=== PATIENT | female | born 1950 | race Caucasian/White ===

== ENCOUNTER → 2017-02-24 | Outpatient (CLI) | payer MEDICARE, OTHER ==
--- NOTE | 2017-02-24 15:06 | PCVCIMAG ---
APPROVED REPORT Laterality: Bilateral Indications Stenosis Risk Factors Hypertension: Hyperlipidemia Diabetes Doppler Spectral Velocity Analysis PSV / EDVPSV / EDV ECA (R) 83 / 6 cm/sECA (L) 82 / 7 cm/s dICA (R) 78 / 21 cm/sdICA (L) 67 / 0 cm/s Brandon (R) 62 / 19 cm/smICA (L) 81 / 21 cm/s pICA (R) 56 / 13 cm/spICA (L) 54 / 15 cm/s Bulb (R) 44 / 12 cm/sBulb (L) 56 / 16 cm/s dCCA (R) 70 / 16 cm/sdCCA (L) 82 / 14 cm/s mCCA (R) 74 / 10 cm/smCCA (L) 77 / 13 cm/s Vert (R) 52 / 14 cm/sVert (L) 32 / 7 cm/s ICA/CCA 1.11ICA/CCA 0.99 Basic Measurements Blood Pressure: Pulses: Right Left RightLeft Brachial(Sitting) 134/44ikYp159/70mmHgTemporal Real Time B-Mode Imaging Vert. (R)AntegradeVert. (L)Antegrade Findings The right carotid bulb has no significant plaque. The right proximal internal carotid artery shows no significant stenosis. The right common carotid artery shows no significant stenosis. The right external carotid artery shows no significant stenosis. The left carotid bulb has no significant plaque. The left proximal internal carotid artery shows no significant stenosis. The left common carotid artery shows no significant stenosis. The left external carotid artery shows no significant stenosis. Conclusion 1. Normal bilateral carotid duplex 2. Antegrade vertebral flow
--- NOTE | 2017-02-24 16:13 | PCVCIMAG ---
APPROVED REPORT Exam: Stress Echocardiogram Indication: CAD s/p CABG,, Hypertension, Hyperlipidemia, diabetes Patient Location: Echo lab Stress Nurse: Anita Ornelas RN Status: routine Ht: 5 ft 1 in HR: 48 bpm BP: 130/62 mmHg Rhythm: NSR Medical History Medical History: Diabetes, CAD s/p CABG Cardiac Risk Factors: HTN, Hyperlipidemia, DM Previous Cardiac Procedures: CABG Pretest Chest Pain Characteristics: No chest pain Exercise History: Sedentary Procedure The patient underwent an Exercise Stress Test using the Jorge Protocol. Blood pressure, heart rate, and EKG were monitored. An Echocardiogram was performed by emergency medical technician in four stages in quad fashion. At peak stress, four selected images were obtained and placed side by side with resting images for comparison. Stress Test Details Stress Test: Exercise stress testing was performed using a Jorge protocol. HR Resting HR: 55 bpmMax Heart Rate (APMHR): 154 bpm Max HR Achieved: 117 bpmTarget HR (85% APMHR): 130 bpm % of APMHR: 75 Recovery HR: 76 bpm HR response to stress: Blunted HR response to stress- Pt took 10mg Bystolic this am BP Resting BP: 130/62 mmHg Max BP: 186/80 mmHg Recovery BP: 144/64 mmHg ECG Resting ECG: Sinus Rhythm Stress ECG: Sinus Bradycardia ST Change: Normal Arrhythmia: None Recovery ECG: Sinus Rhythm Recovery ST Change: Non-ischemic Recovery ST Deviation: 0.25 mm Recovery Arrhythmia: Rare pvcs Clinical Reason for Termination: Maximal effort Stress Symptoms: none Exercise duration: 6 min 44 sec Highest Stage Achieved: Stage 3: 3.4 mph at 14% grade. Exercise capacity: 9.2 METs Overall Exercise Capacity for Age: Poor Angina Score: None Stress ECG Conclusion The patient exercised according to the JORGE protocol for 6:44 min, achieving a work level of Max. METS: 9.2 . The resting heart rate of 55 bpm radha to a maximal heart rate of 120 bpm. This value represents 77 % of the maximal, age-predicted heart rate. The resting blood pressure of 130/62 mmHg, radha to a maximum blood pressure of 186/80 mmHg. The exercise test was stopped due to fatigue. Pre-Stress Echo The resting Echocardiogram showed normal left ventricular contractility with an estimated Ejection Fraction of about 55-60%. Normal wall motion in all segments on baseline images. Post-Stress Echo The stress Echocardiogram showed normal left ventricular contractility with an estimated Ejection Fraction of about 60-65%. Normal augmentation of wall motion in all segments on post stress images. Clinical No clinical or ECG evidence for ischemia. Conclusion Clinical Response: Non-ischemic Exercise Capacity: Below Average Stress ECG Response: Non-ischemic Stress Echo Images: Non-ischemic Submaximal heart rate response to exercise- patient took Bystolic 10mg this am. <Conclusion> Submaximal heart rate response to exercise- patient took Bystolic 10mg this am.
== END | disposition home or self-care (01) ==
LOC: PCVCIMAG 13:46
PROVIDERS: ATTEND Internal Medicine Cardiovascular Disease
DX: I10 Essential (primary) hypertension (principal); E11.9 Type 2 diabetes mellitus without complications; E78.5 Hyperlipidemia, unspecified; I77.89 Other specified disorders of arteries and arterioles; I25.10 Atherosclerotic heart disease of native coronary artery without angina pectoris; I49.3 Ventricular premature depolarization; R09.89 Other specified symptoms and signs involving the circulatory and respiratory systems; Z95.1 Presence of aortocoronary bypass graft
CPT/HCPCS: 93325; 93351; 93880

== ENCOUNTER → 2017-05-19 | Outpatient (CLI) | payer MEDICARE, OTHER | END | disposition home or self-care (01) | LOC: PCVCCLINIC 13:31 | PROVIDERS: ATTEND Internal Medicine Cardiovascular Disease | DX: I48.91 Unspecified atrial fibrillation (principal); A04.72 Enterocolitis due to Clostridium difficile, not specified as recurrent; E11.8 Type 2 diabetes mellitus with unspecified complications; I25.810 Atherosclerosis of coronary artery bypass graft(s) without angina pectoris; I10 Essential (primary) hypertension; I73.9 Peripheral vascular disease, unspecified; E78.5 Hyperlipidemia, unspecified; M79.605 Pain in left leg; M79.604 Pain in right leg; Z79.899 Other long term (current) drug therapy; Z79.4 Long term (current) use of insulin | CPT/HCPCS: 93005; G0463 ==

== ENCOUNTER → 2018-01-14 | Outpatient (CLI) | payer MEDICARE, OTHER | END | disposition home or self-care (01) | LOC: PCVCCLINIC 15:37 | PROVIDERS: ATTEND Internal Medicine Cardiovascular Disease | DX: I25.810 Atherosclerosis of coronary artery bypass graft(s) without angina pectoris (principal); E78.5 Hyperlipidemia, unspecified; E11.8 Type 2 diabetes mellitus with unspecified complications; I48.0 Paroxysmal atrial fibrillation; I10 Essential (primary) hypertension; I77.9 Disorder of arteries and arterioles, unspecified; R94.31 Abnormal electrocardiogram [ECG] [EKG]; Z95.1 Presence of aortocoronary bypass graft; Z88.8 Allergy status to other drugs, medicaments and biological substances; Z87.891 Personal history of nicotine dependence; Z79.4 Long term (current) use of insulin; Z79.899 Other long term (current) drug therapy | CPT/HCPCS: 93005; G0463 ==

== ENCOUNTER → 2018-06-09 | Outpatient (CLI) | payer MEDICARE, OTHER ==
[~2018-06-09] MED LIST: REGADENOSON 0.4 MG/5 ML DISP.SYRIN. IV ONE
--- NOTE | 2018-06-09 14:55 | PCVCIMAG ---
APPROVED REPORT Study performed: 06/09/2018 08:05:37 EXAM: Comprehensive 2D, Doppler, and color-flow Echocardiogram Patient Location: Echo lab Status: routine BSA: 1.72 HR: 53 bpmBP: 160/80 mmHg Rhythm: NSR Other Information Study Quality: Good Risk Factors: Cardiac Risk Factors: HTN, Hyperlipidemia, DM Indications Atrial Fibrillation CAD CABG 2D Dimensions IVSd: 10.44 (7-11mm)LVOT Diam: 19.51 (18-24mm) LVDd: 52.81 mm PWd: 9.93 (7-11mm)Ascending Ao: 32.79 (22-36mm) LVDs: 29.81 (25-40mm) Left Atrium: 43.98 (27-40mm) Aortic Root: 26.61 mm LV Single Plane 4CH: 51.43 % LV Single Plane 2CH: 45.91 % Biplane EF: 52.2 % Volumes Left Atrial Volume (Systole) Single Plane 4CH: 56.43 mLSingle Plane 2CH: 52.34 mL LA ESV Index: 33.00 mL/m2 Aortic Valve AoV Peak Bassem.: 1.79 m/s AO Peak Gr.: 12.89 mmHgLVOT Max P.67 mmHg LVOT Max V: 0.96 m/s SYLVESTER Vmax: 1.59 cm2 Mitral Valve E/A Ratio: 1.4 MV Decel. Time: 175.50 ms MV E Max Bassem.: 1.11 m/s MV A Bassem.: 0.82 m/s TDI E/Lateral E': 18.50E/Medial E': 11.10 Medial E' Bassem.: 0.10 m/s Lateral E' Bassem.: 0.06 m/s Pulmonary Valve PV Peak Gr.: 1.92 mmHg Pulmonary Vein P Vein S: 0.51 m/sP Vein A: 0.31 m/s P Vein D: 0.68 m/s P Vein S/D Ratio: 0.75 Tricuspid Valve TR Peak Bassem.: 2.95 m/s TR Peak Gr.: 34.77 mmHg Left Ventricle The left ventricle is normal size. There is normal LV segmental wall motion. There is normal left ventricular wall thickness. Left ventricular systolic function is normal. The left ventricular ejection fraction is within the normal range. LVEF is 55-60%. The left ventricular diastolic function is normal. Right Ventricle The right ventricle is normal size. The right ventricular systolic function is normal. Atria The left atrium size is normal. The right atrium size is normal. Aortic Valve The aortic valve is normal in structure. No aortic regurgitation is present. There is no aortic valvular stenosis. Mitral Valve The mitral valve is normal in structure. Trace mitral regurgitation. No evidence of mitral valve stenosis. Tricuspid Valve The tricuspid valve is normal in structure. Trace to mild tricuspid regurgitation. Pulmonary artery pressure is 42mmHg. Pulmonic Valve The pulmonary valve is normal in structure. There is no pulmonic valvular regurgitation. Great Vessels The aortic root is normal in size. IVC is normal in size and collapses >50% with inspiration. Pericardium There is no pericardial effusion. <Conclusion> The left ventricle is normal size. LVEF is 55-60%. The left ventricular diastolic function is normal. The right ventricle is normal size. The left atrium size is normal. The aortic valve is normal in structure. There is no aortic valvular stenosis. Trace mitral regurgitation. Trace to mild tricuspid regurgitation. Pulmonary artery pressure is 42mmHg. The aortic root is normal in size. There is no pericardial effusion.
--- NOTE | 2018-06-15 11:44 | PCVCIMAG ---
APPROVED REPORT Imaging Protocol: Rest Tc-99m/Stress Tc-99m 1 day Study performed: 06/09/2018 09:18:02 Indication: CAD , Atrial Fibrillation Patient Location: Out-Patient Stress Nurse: Linda Feliciano RN, Anita Ornelas RN MD Tech:Galilea Valiente [facility] Ht: 5 ft 1 in Wt: 160 lbs BSA: 1.72 m2 HR: 54 bpm BP: 186/83 mmHg BMI: 30.2 Rhythm: Sinus Rhythm, 1st degree AV block Medical History Medical History: HTN, Hyperlipidemia, Diabetes Medications: Eliquis, Zetia, Furosemide, Insulin, Losartan, Actos, Lyrica, Crestor, Onglyza, Bystolic Allergies: Many - None relevant to this exam Cardiac Risk Factors: Age, FHX of CAD Previous Cardiac Procedures: CABG Pretest Chest Pain Characteristics: No chest pain Exercise History: Sedentary Physical Disabilities: Back, Hips Meds Held (24 hrs): Bystolic Resting Data Rest SPECT myocardial perfusion imaging was performed in supine position 45 minutes following the intravenous injection of 10.2 mCi of Tc-99m Sestamibi. Time of rest injection: 0900 Date: 06/09/2018 Administration Route: IV Administration Site: Right AC Pharmacologic Stress Pharmacologic stress test was performed by injecting Regadenoson 0.4 mg IV push over 10-15 seconds immediately followed by the intravenous injection of 33.9 mCi of Tc-99m Sestamibi. Time of stress injection: 1010 Date: 06/09/2018 Administration Route: IV Administration Site: Right AC Gated Stress SPECT was performed 45 minutes after stress injection. The images were gated to evaluate regional wall motion and calculate left ventricular ejection fraction. Stress Test Details Stress Test: Pharmacologic stress testing performed using 0.4 mg of regadenoson per 5 mL given IV over 10 seconds. Reason for pharmacologic stress test: hip and back issues. HRMax Heart Rate (APMHR): 152 bpm Resting HR: 54 bpmTarget HR (85% APMHR): 129 bpm Max HR Achieved: 80 bpm % of APMHR: 52 Recovery HR: 71 bpm BP Resting BP: 186/83 mmHg Max BP: 160/69 mmHg Recovery BP: 152/70 mmHg ECG Resting ECG: Sinus Rhythm, 1st degree AV block Stress ECG: Sinus Rhythm, 1st degree AV block Arrhythmia: None Recovery ECG: Sinus Bradycardia, 1st degree AV block Clinical Reason for Termination: Completed protocol Stress Symptoms: Headache Exercise duration: 0 min 55 sec Symptoms resolved with caffeine. Stress ECG Conclusion ECG: Non-ischemic Study Quality Study: Good Study Data Post stress, the left ventricular ejection was 74%.. SSS: 3 SRS: 1 SDS: 2 TID = 1.02. Perfusion No evidence of stress induced ischemia or prior myocardial infarction. Wall Motion Normal left ventricular size and function with no regional wall motion abnormalities. Nuclear Conclusion No evidence of stress induced ischemia or prior myocardial infarction. Normal left ventricular size and function with no regional wall motion abnormalities. Post stress, the left ventricular ejection was 74%. No prior study available for comparison. Interpreted by: El Vicente MD Electronically Approved: 06/09/2018 17:22:43 <Conclusion> ECG: Non-ischemic
== END | disposition home or self-care (01) ==
LOC: PCVCIMAG 08:11
PROVIDERS: ATTEND Internal Medicine Cardiovascular Disease
DX: I48.91 Unspecified atrial fibrillation (principal); E78.5 Hyperlipidemia, unspecified; I25.10 Atherosclerotic heart disease of native coronary artery without angina pectoris; E11.9 Type 2 diabetes mellitus without complications; I10 Essential (primary) hypertension; Z95.1 Presence of aortocoronary bypass graft
CPT/HCPCS: 78452; 93017; 93306; A9500; J2785

== ENCOUNTER → 2019-01-04 | Outpatient (CLI) | payer MEDICARE, OTHER | END | disposition home or self-care (01) | LOC: PCVCCLINIC 11:30 | PROVIDERS: ATTEND Internal Medicine Cardiovascular Disease | DX: I25.10 Atherosclerotic heart disease of native coronary artery without angina pectoris (principal); E78.5 Hyperlipidemia, unspecified; E11.8 Type 2 diabetes mellitus with unspecified complications; I48.0 Paroxysmal atrial fibrillation; I10 Essential (primary) hypertension; D68.59 Other primary thrombophilia; I65.23 Occlusion and stenosis of bilateral carotid arteries; Z79.82 Long term (current) use of aspirin; Z88.1 Allergy status to other antibiotic agents | CPT/HCPCS: 93005; G0463 ==